=== PATIENT | female | born 1960 | race Two or more races ===

== ENCOUNTER 2017-09-27 04:42 | Emergency (ER) | payer OTHER ==
[2017-09-27] MEDS: LIDOCAINE 1% (MDV) 20 ML INJ SC (06:00)
[2017-09-27] MEDS: ACETAMINOPHEN 500 MG TAB PO (06:08)
[2017-09-27] MEDS: ONDANSETRON (ODT) 4 MG TAB ODT (06:10)
[2017-09-27] MEDS: DIPHTH/TET/ACEL PERTUSS (ADULT) 0.5 ML VIAL IM* (06:18)
== END 2017-09-27 07:36 | disposition home or self-care (01) ==
LOC: FTE 04:42
DX: S01.01XA Laceration without foreign body of scalp, initial encounter (principal); S09.90XA Unspecified injury of head, initial encounter; E10.9 Type 1 diabetes mellitus without complications; J06.9 Acute upper respiratory infection, unspecified; R11.0 Nausea; R42 Dizziness and giddiness; W01.198A Fall on same level from slipping, tripping and stumbling with subsequent striking against other object, initial encounter; Y92.9 Unspecified place or not applicable; Z85.42 Personal history of malignant neoplasm of other parts of uterus
CPT/HCPCS: 12002; 70450; 71045; 72125; 82962; 90715; 93005; 99285-25